=== PATIENT | female | born 1930 | race Caucasian/White ===

== ENCOUNTER 2018-12-01 00:13 | Inpatient (IN) | payer SELFPAY, OTHER ==
[2018-12-01 00:38] LABS: ADD MAN DIFF? NO
[2018-12-01] MEDS: IPRATROPIUM (NEB) 0.5 MG/2.5 ML AMP NEB ×2 (00:48→03:26)
[2018-12-01] MEDS: ALBUTEROL 0.083% (NEB) 2.5 MG/3 ML AMP NEB ×2 (00:48→03:27)
[2018-12-01 00:53] LABS: BASOPHIL # 0.1 10^3/ul (0.0-0.1); BASOPHILS % 0.4 % (0.0-2.0); EOSINOPHILS # 0.1 10^3/ul (0.0-0.5); EOSINOPHILS % 0.7 % (0.0-7.0); HEMOGLOBIN 13.2 g/dl (12.0-16.0); LYMPHOCYTES # 2.5 10^3/ul (0.8-2.9); LYMPHOCYTES % 16.6 % (15.0-51.0); MEAN CORPUSCULAR HEMOGLOBIN 29.8 pg (29.0-33.0); MEAN CORPUSCULAR HGB CONC 32.2 g/dl (32.0-37.0); MEAN CORPUSCULAR VOLUME 92.6 fl (82.0-101.0); MEAN PLATELET VOLUME 9.5 fl (7.4-10.4); MONOCYTE # 1.2 10^3/ul (0.3-0.9); MONOCYTES % 8.1 % (0.0-11.0); NEUTROPHIL # 10.9 10^3/ul (1.6-7.5); NEUTROPHILS % 73.9 % (39.0-77.0); PLATELET COUNT 238 10^3/UL (140-415); RED BLOOD COUNT 4.43 10^6/ul (4.20-5.40); RED CELL DISTRIBUTION WIDTH 13.7 % (11.5-14.5)
[2018-12-01 00:53] LABS: WHITE BLOOD COUNT 14.8 10^3/ul (4.8-10.8)
[2018-12-01 00:59] LABS: ALANINE AMINOTRANSFERASE 21 IU/L (13-69); ALBUMIN 4.1 g/dl (3.3-4.9); ALBUMIN/GLOBULIN RATIO 1.24; ALKALINE PHOSPHATASE 105 IU/L (42-121); ANION GAP 6 (5-13); ASPARTATE AMINO TRANSFERASE 31 IU/L (15-46); BILIRUBIN,INDIRECT 0.6 mg/dl (0-1.1); BILIRUBIN,TOTAL 0.6 mg/dl (0.2-1.3); BLOOD UREA NITROGEN 11 mg/dl (7-20); CALCIUM 8.9 mg/dl (8.4-10.2); CARBON DIOXIDE 28 mmol/L (21-31); CHLORIDE 103 mmol/L (97-110); CREATININE 0.69 mg/dl (0.44-1.00); GLUCOSE 113 mg/dl (70-220); LIPASE 56 U/L (23-300); POTASSIUM 3.7 mmol/L (3.5-5.1); SODIUM 137 mmol/L (135-144); TOTAL PROTEIN 7.4 g/dl (6.1-8.1)
[2018-12-01 01:06] LABS: INR 0.94; PROTIME 12.7 Sec (11.9-14.9)
[2018-12-01 01:07] LABS: PARTIAL THROMBOPLASTIN TIME 28.1 Sec (23.0-35.0)
[2018-12-01 01:11] LABS: TROPONIN-I < 0.012 ng/ml (0.000-0.120)
[2018-12-01 01:13] LABS: ADD UMIC YES; UR ASCORBIC ACID NEGATIVE (NEGATIVE); UR BACTERIA FEW /HPF (NONE SEEN); UR BILIRUBIN (Dip) NEGATIVE (NEGATIVE); UR BLOOD (Dip) 2+ mg/dL (NEGATIVE); UR CLARITY SLIGHTLY CLOUDY (CLEAR); UR COLOR YELLOW (YELLOW); UR GLUCOSE (Dip) NEGATIVE (NEGATIVE); UR KETONES (Dip) NEGATIVE (NEGATIVE); UR LEUKOCYTE ESTERASE (Dip) 3+ Leu/ul (NEGATIVE); UR MUCUS FEW /HPF (NONE SEEN); UR NITRITE (Dip) NEGATIVE (NEGATIVE); UR RBC 17 /HPF (0-5); UR SPECIFIC GRAVITY (Dip) 1.015 (1.003-1.030); UR SQUAMOUS EPITHELIAL CELL FEW /HPF (FEW); UR TOTAL PROTEIN (Dip) NEGATIVE (NEGATIVE); UR UROBILINOGEN (Dip) 1+ mg/dL (NEGATIVE); UR WBC 54 /HPF (0-5)
[2018-12-01] MEDS: ACETAMINOPHEN 325 MG TAB PO (01:24)
[2018-12-01] MEDS: DEXAMETHASONE 10 MG/ML 1 ML INJ IV (01:28)
[2018-12-01] MEDS ORDERED: ONDANSETRON 4 MG INJ IV ×2 (02:00→03:00)
[2018-12-01] MEDS ORDERED: ACETAMINOPHEN 325 MG TAB PO (02:00)
[2018-12-01] MEDS: SOD CHLORIDE 0.9% 100 ML (02:50)
[2018-12-01] MEDS: IOHEXOL 300MG/ML 150 ML BTL (02:50)
[2018-12-01] MEDS ORDERED: NACL 0.9% 3 ML SYG IV (03:00)
[2018-12-01] MEDS ORDERED: DOCUSATE SODIUM 100 MG CAP PO (03:00)
[2018-12-01] MEDS ORDERED: BISACODYL (EC) 5 MG TAB PO (03:00)
[2018-12-01] MEDS: LEVOFLOXACIN 500MG/D5W (PMX) 100 ML IVPB (03:29)
[2018-12-01] MEDS: FAMOTIDINE 20 MG TAB PO ×2 (04:36→09:00)
[2018-12-01 04:41] LABS: ABNORMAL IP MESSAGE 1; HEMATOCRIT 41.1 % (37.0-47.0); HEMOGLOBIN 13.4 g/dl (12.0-16.0); MEAN CORPUSCULAR HEMOGLOBIN 30.2 pg (29.0-33.0); MEAN CORPUSCULAR HGB CONC 32.6 g/dl (32.0-37.0); MEAN CORPUSCULAR VOLUME 92.6 fl (82.0-101.0); MEAN PLATELET VOLUME 9.3 fl (7.4-10.4); PLATELET COUNT 236 10^3/UL (140-415); RED BLOOD COUNT 4.44 10^6/ul (4.20-5.40); RED CELL DISTRIBUTION WIDTH 13.6 % (11.5-14.5)
[2018-12-01 04:42] LABS: POSITIVE DIFF @See below
[2018-12-01 04:43] LABS: ADD MAN DIFF? YES
[2018-12-01 04:52] LABS: HEMOGLOBIN A1C 5.9 % (0-5.9)
[2018-12-01 04:56] LABS: LACTIC ACID 1.8 mmol/L (0.5-2.0)
[2018-12-01 04:58] LABS: ALANINE AMINOTRANSFERASE 19 IU/L (13-69); ALBUMIN/GLOBULIN RATIO 1.25; ALKALINE PHOSPHATASE 113 IU/L (42-121); ANION GAP 9 (5-13); ASPARTATE AMINO TRANSFERASE 28 IU/L (15-46); BILIRUBIN,INDIRECT 0.6 mg/dl (0-1.1); BILIRUBIN,TOTAL 0.6 mg/dl (0.2-1.3); BLOOD UREA NITROGEN 10 mg/dl (7-20); CALCIUM 8.7 mg/dl (8.4-10.2); CARBON DIOXIDE 26 mmol/L (21-31); CHLORIDE 102 mmol/L (97-110); CREATININE 0.61 mg/dl (0.44-1.00); GLUCOSE 225 mg/dl (70-220); POTASSIUM 3.7 mmol/L (3.5-5.1); SODIUM 137 mmol/L (135-144); TOTAL PROTEIN 7.2 g/dl (6.1-8.1)
[2018-12-01 05:06] LABS: B-TYPE NATRIURETIC PEPTIDE 92 PG/ML (0-450)
[2018-12-01] MEDS: IPRATROPIUM (NEB) 0.5 MG/2.5 ML AMP HHN ×5 (05:45→20:53)
[2018-12-01] MEDS: LEVALBUTEROL (NEB) 1.25 MG/0.5 ML AMP HHN ×5 (05:45→20:53)
[2018-12-01] MEDS: HEPARIN 5,000 UNIT/1 ML VIAL SC ×2 (06:20→15:54)
[2018-12-01 06:47] LABS: BAND NEUTROPHILS #M 0.4 10^3/ul (0.0-0.6); BAND NEUTROPHILS % (M) 3 % (0-4); LYMPHOCYTES #M 0.3 10^3/ul (0.8-2.9); LYMPHOCYTES % (M) 2 % (15-51); PLATELET ESTIMATE NORMAL; POLYCHROMASIA 1+ (0-0); SEG NEUT #M 15.3 10^3/ul (1.6-7.5); SEGMENTED NEUTROPHILS (M) % 95 % (39-77)
[2018-12-01] MEDS ORDERED: VANCOMYCIN IV PER PHARMACY XX (07:30)
[2018-12-01] MEDS: AZTREONAM 1 GM/NS (PMX) 50 ML IVPB ×2 (08:16→23:06)
[2018-12-01] MEDS ORDERED: predniSONE 20 MG TAB PO (09:00)
[2018-12-01 09:12] LABS: CREATINE KINASE 54 IU/L (23-200)
[2018-12-01 09:25] LABS: CK INDEX 4.2; CK-MB 2.27 ng/ml (0.0-2.4); TROPONIN-I < 0.012 ng/ml (0.000-0.120)
[2018-12-01] MEDS: NACL 3% FOR INHALATION 15 ML NEBU NEB (09:26)
[2018-12-01] MEDS: SOD CHLORIDE 0.9% 500 ML IV (09:55)
[2018-12-01] MEDS: VANCOMYCIN HCL 1.25 GM in SOD CHLORIDE 0.9% 250 ML IVPB (09:55)
[2018-12-01] MEDS: predniSONE 20 MG TAB PO (09:56)
[2018-12-01] MEDS: METHYLPREDNISOLONE 125 MG INJ IV (18:47)
[2018-12-01] MEDS: MAGNESIUM OXIDE 400 MG TAB PO ×2 (18:48→20:25)
[2018-12-02] MEDS: IPRATROPIUM (NEB) 0.5 MG/2.5 ML AMP HHN ×6 (01:12→22:16)
[2018-12-02] MEDS: LEVALBUTEROL (NEB) 1.25 MG/0.5 ML AMP HHN ×6 (01:12→22:16)
[2018-12-02] MEDS: METHYLPREDNISOLONE 125 MG INJ IV ×3 (01:37→17:53)
[2018-12-02 05:37] LABS: ADD MAN DIFF? NO
[2018-12-02 05:42] LABS: BASOPHILS % 0.1 % (0.0-2.0); HEMATOCRIT 38.7 % (37.0-47.0); HEMOGLOBIN 12.8 g/dl (12.0-16.0); LYMPHOCYTES # 0.8 10^3/ul (0.8-2.9); LYMPHOCYTES % 4.2 % (15.0-51.0); MEAN CORPUSCULAR HEMOGLOBIN 30.2 pg (29.0-33.0); MEAN CORPUSCULAR HGB CONC 33.1 g/dl (32.0-37.0); MEAN CORPUSCULAR VOLUME 91.3 fl (82.0-101.0); MEAN PLATELET VOLUME 9.9 fl (7.4-10.4); MONOCYTE # 0.3 10^3/ul (0.3-0.9); MONOCYTES % 1.8 % (0.0-11.0); NEUTROPHIL # 16.9 10^3/ul (1.6-7.5); NEUTROPHILS % 93.5 % (39.0-77.0); PLATELET COUNT 247 10^3/UL (140-415); RED BLOOD COUNT 4.24 10^6/ul (4.20-5.40); RED CELL DISTRIBUTION WIDTH 13.7 % (11.5-14.5)
[2018-12-02 05:42] LABS: WHITE BLOOD COUNT 18.1 10^3/ul (4.8-10.8)
[2018-12-02 05:51] LABS: MAGNESIUM 2.3 mg/dl (1.7-2.5)
[2018-12-02 05:51] LABS: PHOSPHORUS 2.4 mg/dl (2.5-4.9)
[2018-12-02 05:54] LABS: ALANINE AMINOTRANSFERASE 23 IU/L (13-69); ALBUMIN 3.8 g/dl (3.3-4.9); ALBUMIN/GLOBULIN RATIO 1.22; ALKALINE PHOSPHATASE 98 IU/L (42-121); ANION GAP 4 (5-13); ASPARTATE AMINO TRANSFERASE 40 IU/L (15-46); BILIRUBIN,INDIRECT 0.6 mg/dl (0-1.1); BILIRUBIN,TOTAL 0.6 mg/dl (0.2-1.3); BLOOD UREA NITROGEN 17 mg/dl (7-20); CALCIUM 9.4 mg/dl (8.4-10.2); CARBON DIOXIDE 28 mmol/L (21-31); CHLORIDE 108 mmol/L (97-110); GLUCOSE 150 mg/dl (70-220); POTASSIUM 3.9 mmol/L (3.5-5.1); SODIUM 140 mmol/L (135-144); TOTAL PROTEIN 6.9 g/dl (6.1-8.1)
[2018-12-02 06:03] LABS: TROPONIN-I 0.017 ng/ml (0.000-0.120)
[2018-12-02] MEDS: FAMOTIDINE 20 MG TAB PO (09:06)
[2018-12-02] MEDS: MAGNESIUM OXIDE 400 MG TAB PO ×3 (09:06→20:10)
[2018-12-02] MEDS: ENOXAPARIN 40 MG/0.4 ML SYG SC (09:06)
[2018-12-02] MEDS: AZTREONAM 1 GM/NS (PMX) 50 ML IVPB (09:53)
[2018-12-02] MEDS: VANCOMYCIN 750 MG (PMX) 250 ML IVPB (10:38)
[2018-12-02] MEDS: LEVOFLOXACIN 500 MG TAB PO (13:22)
[2018-12-02] MEDS: GUAIFENESIN/DM 5ML CUP PO ×2 (15:16→22:40)
[2018-12-03] MEDS: METHYLPREDNISOLONE 125 MG INJ IV ×3 (01:33→17:36)
[2018-12-03] MEDS: IPRATROPIUM (NEB) 0.5 MG/2.5 ML AMP HHN ×6 (02:40→21:31)
[2018-12-03] MEDS: LEVALBUTEROL (NEB) 1.25 MG/0.5 ML AMP HHN ×6 (02:40→21:31)
[2018-12-03] MEDS: LEVOFLOXACIN 250 MG TAB PO (05:47)
[2018-12-03] MEDS: GUAIFENESIN/DM 5ML CUP PO ×3 (05:52→20:51)
[2018-12-03 07:40] LABS: ADD MAN DIFF? NO
[2018-12-03 07:43] LABS: WHITE BLOOD COUNT 20.5 10^3/ul (4.8-10.8)
[2018-12-03 07:43] LABS: BASOPHILS % 0.1 % (0.0-2.0); HEMATOCRIT 42.4 % (37.0-47.0); HEMOGLOBIN 13.7 g/dl (12.0-16.0); LYMPHOCYTES # 0.7 10^3/ul (0.8-2.9); LYMPHOCYTES % 3.4 % (15.0-51.0); MEAN CORPUSCULAR HEMOGLOBIN 30.1 pg (29.0-33.0); MEAN CORPUSCULAR HGB CONC 32.3 g/dl (32.0-37.0); MEAN CORPUSCULAR VOLUME 93.2 fl (82.0-101.0); MEAN PLATELET VOLUME 9.9 fl (7.4-10.4); MONOCYTE # 0.4 10^3/ul (0.3-0.9); MONOCYTES % 1.9 % (0.0-11.0); NEUTROPHIL # 19.2 10^3/ul (1.6-7.5); PLATELET COUNT 289 10^3/UL (140-415); RED BLOOD COUNT 4.55 10^6/ul (4.20-5.40); RED CELL DISTRIBUTION WIDTH 14.1 % (11.5-14.5)
[2018-12-03 08:03] LABS: ALANINE AMINOTRANSFERASE 30 IU/L (13-69); ALBUMIN 3.9 g/dl (3.3-4.9); ALBUMIN/GLOBULIN RATIO 1.21; ALKALINE PHOSPHATASE 91 IU/L (42-121); ANION GAP 7 (5-13); ASPARTATE AMINO TRANSFERASE 70 IU/L (15-46); BILIRUBIN,INDIRECT 0.5 mg/dl (0-1.1); BILIRUBIN,TOTAL 0.5 mg/dl (0.2-1.3); BLOOD UREA NITROGEN 21 mg/dl (7-20); CALCIUM 9.2 mg/dl (8.4-10.2); CARBON DIOXIDE 27 mmol/L (21-31); CHLORIDE 105 mmol/L (97-110); CREATININE 0.67 mg/dl (0.44-1.00); GLUCOSE 161 mg/dl (70-220); POTASSIUM 4.2 mmol/L (3.5-5.1); SODIUM 139 mmol/L (135-144); TOTAL PROTEIN 7.1 g/dl (6.1-8.1)
[2018-12-03] MEDS: MAGNESIUM OXIDE 400 MG TAB PO ×3 (08:50→20:51)
[2018-12-03] MEDS: FAMOTIDINE 20 MG TAB PO (08:50)
[2018-12-03] MEDS: ENOXAPARIN 40 MG/0.4 ML SYG SC (08:52)
[2018-12-03] MEDS: ACETAMINOPHEN 325 MG TAB PO (08:59)
[2018-12-03 11:57] LABS: NIL 0.01 IU/mL; QUANTIFERON(R)-TB GOLD NEGATIVE (NEGATIVE); TB-NIL 0.01 IU/mL; TB2-NIL 0.02 IU/mL
[2018-12-03] MEDS: MONTELUKAST 10 MG TAB PO (20:51)
[2018-12-04] MEDS: IPRATROPIUM (NEB) 0.5 MG/2.5 ML AMP HHN ×6 (01:02→21:33)
[2018-12-04] MEDS: LEVALBUTEROL (NEB) 1.25 MG/0.5 ML AMP HHN ×6 (01:02→21:33)
[2018-12-04] MEDS: METHYLPREDNISOLONE 125 MG INJ IV ×3 (01:50→21:12)
[2018-12-04] MEDS: LEVOFLOXACIN 250 MG TAB PO (05:56)
[2018-12-04 06:10] LABS: ADD MAN DIFF? NO
[2018-12-04 06:15] LABS: WHITE BLOOD COUNT 14.2 10^3/ul (4.8-10.8)
[2018-12-04 06:15] LABS: BASOPHILS % 0.1 % (0.0-2.0); HEMATOCRIT 37.4 % (37.0-47.0); LYMPHOCYTES # 0.6 10^3/ul (0.8-2.9); LYMPHOCYTES % 4.2 % (15.0-51.0); MEAN CORPUSCULAR HEMOGLOBIN 29.8 pg (29.0-33.0); MEAN CORPUSCULAR HGB CONC 32.1 g/dl (32.0-37.0); MEAN CORPUSCULAR VOLUME 92.8 fl (82.0-101.0); MEAN PLATELET VOLUME 10.2 fl (7.4-10.4); MONOCYTE # 0.5 10^3/ul (0.3-0.9); MONOCYTES % 3.2 % (0.0-11.0); NEUTROPHIL # 13.1 10^3/ul (1.6-7.5); PLATELET COUNT 268 10^3/UL (140-415); RED BLOOD COUNT 4.03 10^6/ul (4.20-5.40); RED CELL DISTRIBUTION WIDTH 13.8 % (11.5-14.5)
[2018-12-04 06:48] LABS: C-REACTIVE PROTEIN 1.1 mg/dl (0.0-0.9)
[2018-12-04 06:49] LABS: ALANINE AMINOTRANSFERASE 47 IU/L (13-69); ALBUMIN 3.1 g/dl (3.3-4.9); ALBUMIN/GLOBULIN RATIO 1.03; ALKALINE PHOSPHATASE 75 IU/L (42-121); ANION GAP 2 (5-13); ASPARTATE AMINO TRANSFERASE 55 IU/L (15-46); BILIRUBIN,INDIRECT 0.5 mg/dl (0-1.1); BILIRUBIN,TOTAL 0.5 mg/dl (0.2-1.3); BLOOD UREA NITROGEN 21 mg/dl (7-20); CALCIUM 8.4 mg/dl (8.4-10.2); CARBON DIOXIDE 32 mmol/L (21-31); CHLORIDE 104 mmol/L (97-110); GLUCOSE 150 mg/dl (70-220); POTASSIUM 4.2 mmol/L (3.5-5.1); SODIUM 138 mmol/L (135-144); TOTAL PROTEIN 6.1 g/dl (6.1-8.1)
[2018-12-04 08:37] LABS: ERYTHROCYTE SEDIMENTATION RATE 9 mm/Hr (0-30)
[2018-12-04] MEDS: FAMOTIDINE 20 MG TAB PO (08:52)
[2018-12-04] MEDS: MAGNESIUM OXIDE 400 MG TAB PO ×3 (08:52→21:11)
[2018-12-04] MEDS: ERGOCALCIFEROL 50,000 UNIT CAP PO (08:52)
[2018-12-04] MEDS: ENOXAPARIN 40 MG/0.4 ML SYG SC (08:52)
[2018-12-04] MEDS: GUAIFENESIN/DM 5ML CUP PO ×2 (08:52→21:25)
[2018-12-04] MEDS: TIOTROPIUM 18 MCG CAPSULE INHA DEV INH (09:00)
[2018-12-04] MEDS: FLUTICASONE/VILANTEROL 100-25 INH ×2 (09:00→21:36)
[2018-12-04] MEDS: MONTELUKAST 10 MG TAB PO (21:11)
[2018-12-05] MEDS: TIOTROPIUM 18 MCG CAPSULE INHA DEV INH ×2 (00:23→09:48)
[2018-12-05] MEDS: LEVALBUTEROL (NEB) 1.25 MG/0.5 ML AMP HHN ×6 (00:46→19:33)
[2018-12-05] MEDS: IPRATROPIUM (NEB) 0.5 MG/2.5 ML AMP HHN ×6 (00:46→19:33)
[2018-12-05] MEDS: LEVOFLOXACIN 250 MG TAB PO (06:04)
[2018-12-05 08:32] LABS: AADO2 Arterial 14.5 mmHg (7.0-24.0); Allen Test ACCEPTAB; Arterial Base Excess 4.9 mmol/L (-3.0-3); Arterial Blood Gas Oxygen Sat 98.7 mmHG (95.0-100.0); Arterial COHb 0.4 % (0.0-3.0); Arterial Fraction of Oxyhgb 98.1 % (93.0-99.0); Arterial HCO3 29.3 mmol/L (22.0-26.0); Arterial MetHb 0.2 % (0.0-1.5); Arterial pCO2 42.5 mmhg (35-45); MODE NASAL CANNULA; Site Right Radial
[2018-12-05] MEDS: MAGNESIUM OXIDE 400 MG TAB PO ×3 (09:48→20:19)
[2018-12-05] MEDS: FLUTICASONE/VILANTEROL 100-25 INH (09:48)
[2018-12-05] MEDS: FAMOTIDINE 20 MG TAB PO (09:48)
[2018-12-05] MEDS: ENOXAPARIN 40 MG/0.4 ML SYG SC (09:52)
[2018-12-05] MEDS: predniSONE 20 MG TAB PO (13:12)
[2018-12-05] MEDS: MONTELUKAST 10 MG TAB PO (20:19)
[2018-12-06] MEDS: IPRATROPIUM (NEB) 0.5 MG/2.5 ML AMP HHN (01:51)
[2018-12-06] MEDS: LEVALBUTEROL (NEB) 1.25 MG/0.5 ML AMP HHN (01:51)
[2018-12-06] MEDS: LEVOFLOXACIN 250 MG TAB PO (05:23)
[2018-12-06 05:32] LABS: ADD MAN DIFF? NO
[2018-12-06 05:46] LABS: BASOPHILS % 0.4 % (0.0-2.0); HEMATOCRIT 38.1 % (37.0-47.0); HEMOGLOBIN 12.4 g/dl (12.0-16.0); LYMPHOCYTES # 1.7 10^3/ul (0.8-2.9); LYMPHOCYTES % 15.9 % (15.0-51.0); MEAN CORPUSCULAR HGB CONC 32.5 g/dl (32.0-37.0); MEAN CORPUSCULAR VOLUME 92.3 fl (82.0-101.0); MEAN PLATELET VOLUME 10.1 fl (7.4-10.4); MONOCYTE # 1.2 10^3/ul (0.3-0.9); NEUTROPHIL # 7.3 10^3/ul (1.6-7.5); NEUTROPHILS % 70.6 % (39.0-77.0); PLATELET COUNT 293 10^3/UL (140-415); RED BLOOD COUNT 4.13 10^6/ul (4.20-5.40); RED CELL DISTRIBUTION WIDTH 13.7 % (11.5-14.5)
[2018-12-06 05:46] LABS: WHITE BLOOD COUNT 10.4 10^3/ul (4.8-10.8)
[2018-12-06 06:11] LABS: ANION GAP 3 (5-13); BLOOD UREA NITROGEN 17 mg/dl (7-20); CALCIUM 8.6 mg/dl (8.4-10.2); CARBON DIOXIDE 33 mmol/L (21-31); CHLORIDE 101 mmol/L (97-110); CREATININE 0.65 mg/dl (0.44-1.00); GLUCOSE 101 mg/dl (70-220); MAGNESIUM 2.5 mg/dl (1.7-2.5); PHOSPHORUS 2.6 mg/dl (2.5-4.9); POTASSIUM 4.1 mmol/L (3.5-5.1); SODIUM 137 mmol/L (135-144)
[2018-12-06] MEDS: FLUTICASONE/VILANTEROL 100-25 INH (09:57)
[2018-12-06] MEDS: TIOTROPIUM 18 MCG CAPSULE INHA DEV INH (09:57)
[2018-12-06] MEDS: FAMOTIDINE 20 MG TAB PO (09:58)
[2018-12-06] MEDS: MAGNESIUM OXIDE 400 MG TAB PO ×3 (09:58→20:49)
[2018-12-06] MEDS: ENOXAPARIN 40 MG/0.4 ML SYG SC (10:04)
[2018-12-06] MEDS: MONTELUKAST 10 MG TAB PO (20:49)
[2018-12-07] MEDS: LEVOFLOXACIN 250 MG TAB PO (05:13)
[2018-12-07] MEDS: GUAIFENESIN/DM 5ML CUP PO (05:15)
[2018-12-07 05:50] LABS: ADD MAN DIFF? NO
[2018-12-07 05:56] LABS: WHITE BLOOD COUNT 8.5 10^3/ul (4.8-10.8)
[2018-12-07 05:56] LABS: BASOPHIL # 0.1 10^3/ul (0.0-0.1); BASOPHILS % 0.9 % (0.0-2.0); EOSINOPHILS # 0.1 10^3/ul (0.0-0.5); EOSINOPHILS % 1.3 % (0.0-7.0); HEMATOCRIT 42.8 % (37.0-47.0); HEMOGLOBIN 13.9 g/dl (12.0-16.0); LYMPHOCYTES # 2.1 10^3/ul (0.8-2.9); LYMPHOCYTES % 24.9 % (15.0-51.0); MEAN CORPUSCULAR HGB CONC 32.5 g/dl (32.0-37.0); MEAN CORPUSCULAR VOLUME 92.2 fl (82.0-101.0); MEAN PLATELET VOLUME 9.6 fl (7.4-10.4); MONOCYTE # 0.9 10^3/ul (0.3-0.9); NEUTROPHILS % 58.7 % (39.0-77.0); PLATELET COUNT 308 10^3/UL (140-415); RED BLOOD COUNT 4.64 10^6/ul (4.20-5.40); RED CELL DISTRIBUTION WIDTH 13.7 % (11.5-14.5)
[2018-12-07 06:23] LABS: ANION GAP 3 (5-13); BLOOD UREA NITROGEN 17 mg/dl (7-20); CALCIUM 8.4 mg/dl (8.4-10.2); CARBON DIOXIDE 34 mmol/L (21-31); CHLORIDE 100 mmol/L (97-110); CREATININE 0.77 mg/dl (0.44-1.00); GLUCOSE 105 mg/dl (70-220); MAGNESIUM 2.4 mg/dl (1.7-2.5); PHOSPHORUS 2.9 mg/dl (2.5-4.9); POTASSIUM 4.3 mmol/L (3.5-5.1); SODIUM 137 mmol/L (135-144)
[2018-12-07] MEDS: MAGNESIUM OXIDE 400 MG TAB PO ×2 (09:19→13:40)
[2018-12-07] MEDS: FAMOTIDINE 20 MG TAB PO (09:19)
[2018-12-07] MEDS: FLUTICASONE/VILANTEROL 100-25 INH (09:19)
[2018-12-07] MEDS: predniSONE 10 MG TAB PO (09:19)
[2018-12-07] MEDS: TIOTROPIUM 18 MCG CAPSULE INHA DEV INH (09:20)
[2018-12-07] MEDS: ENOXAPARIN 40 MG/0.4 ML SYG SC (09:20)
== END 2018-12-07 14:45 | disposition home or self-care (01) | DRG 190 ==
LOC: E/R 00:13 → PP2 02:00
DX: J44.1 Chronic obstructive pulmonary disease with (acute) exacerbation (principal); J96.01 Acute respiratory failure with hypoxia; N39.0 Urinary tract infection, site not specified; J44.0 Chronic obstructive pulmonary disease with (acute) lower respiratory infection; J20.9 Acute bronchitis, unspecified; J84.10 Pulmonary fibrosis, unspecified; B96.4 Proteus (mirabilis) (morganii) as the cause of diseases classified elsewhere; Z86.11 Personal history of tuberculosis
CPT/HCPCS: 36415; 36600; 71045; 71260; 80048; 80053; 81001; 82306; 82550; 82553; 82803; 83036; 83605; 83690; 83735; 83880; 84100; 84443; 84484; 85025; 85610; 85651; 85730; 86140; 86480; 87040-91; 87086; 87116; 87400; 87556; 89220; 93005; 93306; 94640; 94664; 96374; 97161; 99285-25